=== PATIENT | male | born 1975 | race Caucasian/White ===

== ENCOUNTER 2025-03-24 16:55 | Emergency (ER) | payer OTHER, BC ==
[~2025-03-24] VITALS: Ht 185.4 cm; Wt 61.2 kg
[2025-03-24 17:03] VITALS: BP 163/117; PULSE 72; RESP 18; TEMP 98.4; O2SAT 98
[2025-03-24 17:28] LABS: BASOPHIL # 0.0 10^3/uL (0.0-0.1); BASOPHIL % 0.5 % (0.2-1.2); EOSINOPHIL # 0.2 10^3/uL (0.0-0.2); EOSINOPHIL % 2.3 % (0.0-5.0); HEMATOCRIT(ML) 48.5 % (37.0-53.0); IG % 0.40 % (0.00-0.50); LYMPHOCYTES # 2.12 10^3/uL1 (1.0-4.8); LYMPHOCYTES % 27.4 % (24.0-44.0); MEAN CORP HGB 30.7 pg (26-34); MEAN CORP HGB CONCENTRATION 33.6 g/dL (33-36.5); MEAN CORP VOLUME 91.3 fL (78-100); MONOCYTES # 0.6 10^3/uL (0.3-0.8); MONOCYTES % 7.6 % (5.0-12.0); NEUTROPHIL # 4.8 10^3/uL (1.8-7.7); NEUTROPHILS % 61.8 % (41.0-85.0); RED BLOOD CELL 5.31 10^6/uL (4.50-5.90); RED CELL DISTRIBUTION WIDTH 13.3 % (11.5-14.5); WHITE BLOOD CELL 7.7 10^3/uL (4.5-11.0)
[2025-03-24 17:42] LABS: ALANINE AMINOTRANSFERASE(ML) 46.0 U/L (12-78); ALBUMIN(ML) 4.2 g/dL (3.4-5.0); CREATININE SERUM 0.82 mg/dL (0.59-1.40); EST GFR, NON-AA 99.1 (>/=60)
[2025-03-24 17:52] LABS: LEUKOCYTE ESTERASE ,URINE NEGATIVE (NEGATIVE); NITRATE,URINE NEGATIVE (NEGATIVE)
[2025-03-24 18:23] VITALS: BP 190/104; PULSE 66; RESP 18; O2SAT 98
[2025-03-24 18:23] LABS: APPEARANCE,URINE CLEAR; UA COLOR YELLOW
[2025-03-24] MEDS ORDERED: CATAPRES ONE (18:30)
[2025-03-24] MEDS: CATAPRES PO STA (18:33)
[2025-03-24] MEDS ORDERED: AZIT500T PO (18:38)
[2025-03-24] MEDS ORDERED: LISI20TA21 PO (18:38)
[2025-03-24] MEDS ORDERED: GUAI1TBM10 PO (18:38)
[2025-03-24] MEDS ORDERED: BENZ200C48 PO (18:38)
[2025-03-24] MEDS ORDERED: DECADRON ONE (18:39)
[2025-03-24] MEDS: DECADRON IM STA (18:42)
[2025-03-24 18:45] VITALS: BP 187/89; PULSE 63; RESP 18; O2SAT 98
[2025-03-24] MEDS ORDERED: CATAPRES PO SCH (21:00)
== END 2025-03-24 18:44 | disposition home or self-care (01) ==
LOC: ER 16:55
DX: J40 Bronchitis, not specified as acute or chronic (principal); I10 Essential (primary) hypertension
CPT/HCPCS: 99285; 71045; 96372; 80053; 85025; 36415; 81001; 93005; J1100